=== PATIENT | male | born 1965 | race Caucasian/White ===

== ENCOUNTER 2021-05-06 12:10 | Emergency (ER) | payer OTHER ==
[~2021-05-06] VITALS: Ht 185.4 cm; Wt 91.2 kg
[2021-05-06 12:42] LABS: ABSOLUTE BASOPHILS 0.1 thou/uL (0.0-0.2); ABSOLUTE EOSINOPHILS 0.1 thou/uL (0.0-0.7); ABSOLUTE LYMPHOCYTES 3.6 thou/uL (0.8-5.3); ABSOLUTE MONOCYTES 0.8 thou/uL (0.0-1.2); ABSOLUTE NEUTROPHILS 7.2 thou/uL (1.6-8.1); BASOPHILS 0.6 %; EOSINOPHILS 1.1 %; HEMATOCRIT 51.5 % (42.0-52.0); HEMOGLOBIN 17.8 gm/dL (14.0-18.0); LYMPHOCYTES 30.3 %; MCH 32.3 pg (26.0-34.0); MCHC 34.6 g/dL (28.0-37.0); MCV 93.5 fL (80.0-100.0); MONOCYTES 6.8 %; MPV 7.6 fl. (7.2-11.1); NUCLEATED RBCS 0 /100WBC; PLATELET COUNT* 228 thou/uL (150-400); POLYS 61.2 %; RBC 5.51 mil/uL (4.50-6.00); RDW-CV 13.6 % (10.5-14.5); WBC 11.8 thou/uL (4.0-11.0)
[2021-05-06 12:51] LABS: CALCIUM 9.1 mg/dL (8.5-10.1); CREATININE 1.1 mg/dL (0.6-1.3); POTASSIUM 4.1 mmol/L (3.5-5.1)
[2021-05-06 13:05] LABS: ALBUMIN 4.5 g/dL (3.4-5.0); CK-MB MASS 1.7 ng/mL (<0.5-3.6); MAGNESIUM 2.3 mg/dL (1.8-2.4); TOTAL BILIRUBIN 0.7 mg/dL (<0.1-1.0); TOTAL PROTEIN 7.6 g/dL (6.4-8.2)
[2021-05-06 13:35] VITALS: BP 107/71
--- NOTE | 2021-05-06 14:41 | EKG ---
[place] [address] ELECTROCARDIOGRAM REPORT Name: TATUM SANTOYO Room: [facility]#: [id number] Admission: Attend Phys: Discharge: Date of : 67 Date of Service: 05/06/21 1210 Report #: [id number] THIS REPORT FOR: //name// [facility] ED Test Date: 2021-05-06 Test Time: 12:10:46 Pat Name: TATUM SANTOYO Department: Room: Gender: Acid Cutter: BENJAMIN : 1965 Requested By: Francisco Bell Order Number: [id number] MD: Cisco Page Measurements Intervals [place] Rate: 83 P: 78 NV: 164 QRS: 85 QRSD: 96 T: 67 QT: 369 QTc: 434 Interpretive Statements Sinus rhythm No previous ECG available for comparison Electronically Signed On 05-06-2021 14:41:11 CDT by Cisco Page [email or web address] <ELECTRONICALLY SIGNED> By: Cisco Page MD, FACC 05/06/21 1441 121 1210 Cisco Page MD, FACC /EPI
== END 2021-05-06 13:38 | disposition home or self-care (01) ==
LOC: M.ERS 12:10
PROVIDERS: Family Medicine
DX: R07.89 Other chest pain (principal); F17.210 Nicotine dependence, cigarettes, uncomplicated